=== PATIENT | female | born 1970 | race African-American/Black ===

== ENCOUNTER 2021-01-28 12:08 | Emergency (ER) | payer OTHER, BC ==
[~2021-01-28] VITALS: Ht 165.1 cm; Wt 99.8 kg
[2021-01-28] MEDS ORDERED: ZANAFLEX4 MG PO (15:34)
[2021-01-28 15:53] VITALS: BP 150/96
== END 2021-01-28 15:53 | disposition home or self-care (01) ==
LOC: ER 12:08
DX: S16.1XXA Strain of muscle, fascia and tendon at neck level, initial encounter (principal); S09.90XA Unspecified injury of head, initial encounter; M54.6 Pain in thoracic spine; M54.5 Low back pain; I10 Essential (primary) hypertension; Z86.711 Personal history of pulmonary embolism; Z86.718 Personal history of other venous thrombosis and embolism; V49.88XA Car occupant (driver) (passenger) injured in other specified transport accidents, initial encounter; Y93.89 Activity, other specified; Y92.413 State road as the place of occurrence of the external cause; Y99.9 Unspecified external cause status